=== PATIENT | male | born 1935 | race African-American/Black ===

== ENCOUNTER 2018-08-25 12:57 | Inpatient (IN) ==
[2018-08-25] MEDS ORDERED: MAGNESIUM HYDROXIDE SUSP 30 ML UDCUP PO PRN (13:26)
[2018-08-25] MEDS ORDERED: ONDANSETRON 4 MG/2 ML VIAL IV PRN (13:26)
[2018-08-25 15:24] LABS: Eosinophils % 3.6 % (0.00-10.9); Hematocrit 29.7 VOL% (42.0-52.0); Immature Granulocytes % 1.2 %; Immature Granulocytes Absolute 0.01 #; Lymphocytes # 0.3 10*3/uL (1.4-4.0); Lymphocytes % 39.8 % (21.2-54.2); Mean Corpuscular HGB Conc 30.3 GM/DL (32-36); Mean Corpuscular Volume 61.9 FL (87-102); Monocytes % 3.6 % (1.7-12.7); Neutrophils % 51.8 % (38.7-73.9); Platelet Count 331 T/CUMM (130-400); Red Cell Distribution Width 17.5 % (9.3-17.3)
[2018-08-25 15:27] LABS: White Blood Count 0.8 T/CUMM (4-12)
[2018-08-25] MEDS: FLUCONAZOLE INJ 100 MG in IV BAG 1 EACH IV SCH (15:30)
[2018-08-25] MEDS: MUPIROCIN 2% OINT 22 GM TUBE TOP SCH ×2 (15:30→21:09)
[2018-08-25] MEDS: NYSTATIN 500,000 UNIT/5 ML UDCUP SWISH/SWAL SCH ×3 (15:31→21:55)
[2018-08-25] MEDS: ENOXAPARIN 30 MG/0.3 ML SYRINGE SUBCUT SCH (15:31)
[2018-08-25] MEDS: KETOCONAZOLE 2% CREAM 30 GM TUBE TOP SCH ×2 (15:31→21:55)
[2018-08-25] MEDS: SODIUM CHLORIDE 0.9% 1,000 ML IV SCH (15:31)
[2018-08-25 15:33] LABS: Alanine Aminotransferase 10 U/L (16-61); Albumin 2.7 G/DL (3.4-5.0); Alkaline Phosphatase 46 U/L (45-117); Aspartate Amino Transferase 10 U/L (0-37); Bilirubin,Total < 0.39 MG/DL (0.2-1.0); Blood Urea Nitrogen 37 MG/DL (7-18); Calcium 8.5 MG/DL (8.5-10.1); Glucose 123 MG/DL (74-106); Osmolality,Calculated 288.4 MOS/KG (273-304); Total Protein 7.6 G/DL (6.4-8.3)
[2018-08-25] MEDS ORDERED: VANCOMYCIN INJ 1,000 MG in SODIUM CHLORIDE 0.9% 250 ML IV ONE (15:35)
[2018-08-25 16:03] LABS: Eosinophils 6 % (0-10); Hypochromasia 1+; Lymphocytes 47 % (20-55); Microcytosis 2+; Ovalocytes Few; Platelet Estimate Normal; Segmented Neutrophils 44 % (50-85); Target Cells Few; Total Cells Counted 100
[2018-08-25 16:04] LABS: Atypical Lymphocytes Few
[2018-08-25] MEDS: methylPREDNISolone SOD SUC 40 MG/1 ML VIAL IV SCH (16:34)
[2018-08-25] MEDS: CLINDAMYCIN INJ 300 MG in PREMIX 1 EACH IV SCH ×2 (16:35→23:50)
[2018-08-25 17:21] LABS: Apearance,Urine Slightly Hazy (Clear); Bilirubin,Urine Negative (Negative); Blood, Urine Negative (Negative); Glucose,Urine (UA) Negative (Negative); Ketones,Urine Negative (Negative); Mucus,Urine Occasional /LPF (Occasional); Nitrite,Urine Negative (Negative); Protein,Urine 100 MG/DL; RBC,Urine 2 /HPF (0-4); Squamous Epithelial Cell,Urine Occasional /HPF (0-10); Urine Color Yellow (Yellow); Urine Specific Gravity 1.016 (1.001-1.035); Urine Urobilinogen < 2.0 EU/DL (0.2-1.0); WBC,Urine 4 /HPF (0-6)
[2018-08-25] MEDS: diphenhydrAMINE CAP 25 MG CAPSULE PO PRN (17:44)
[2018-08-25] MEDS: FILGRASTIM-SNDZ 300 MCG/0.5 ML SYRINGE SUBCUT SCH (17:44)
[2018-08-25] MEDS: FOLIC ACID 1 MG TABLET PO SCH (18:16)
[2018-08-25] MEDS: LEUCOVORIN IV SCH (21:05)
[2018-08-25] MEDS: DEXTROSE 5% IV SCH (21:05)
[2018-08-25] MEDS: DOCUSATE SODIUM 100 MG CAPSULE PO SCH (21:09)
[2018-08-25] MEDS: MYLANTA/LIDO VISC/DIPH 300 ML BOTTLE SWISH/SWAL PRN (21:09)
[2018-08-25] MEDS: MEMANTINE 10 MG TABLET PO SCH (21:09)
[2018-08-26] MEDS: methylPREDNISolone SOD SUC 40 MG/1 ML VIAL IV SCH ×3 (00:15→17:20)
[2018-08-26] MEDS: diphenhydrAMINE CAP 25 MG CAPSULE PO PRN ×2 (00:17→20:31)
[2018-08-26] MEDS: LEUCOVORIN IV SCH ×4 (02:57→20:32)
[2018-08-26] MEDS: DEXTROSE 5% IV SCH ×4 (02:57→20:32)
[2018-08-26] MEDS: CLINDAMYCIN INJ 300 MG in PREMIX 1 EACH IV SCH ×4 (04:35→23:28)
[2018-08-26 06:00] LABS: Hematocrit 28.3 VOL% (42.0-52.0); Hemoglobin 8.6 GM/DL (14.0-18.0); Immature Granulocytes % 20.4 %; Immature Granulocytes Absolute 0.11 #; Lymphocytes # 0.2 10*3/uL (1.4-4.0); Lymphocytes % 33.3 % (21.2-54.2); Mean Corpuscular HGB Conc 30.4 GM/DL (32-36); Mean Corpuscular Volume 61.5 FL (87-102); Monocytes % 3.7 % (1.7-12.7); Neutrophils % 42.6 % (38.7-73.9); Platelet Count 331 T/CUMM (130-400); Red Cell Distribution Width 17.9 % (9.3-17.3)
[2018-08-26 06:03] LABS: White Blood Count 0.5 T/CUMM (4-12)
[2018-08-26 06:15] LABS: Calcium 7.9 MG/DL (8.5-10.1); Osmolality,Calculated 289.7 MOS/KG (273-304)
[2018-08-26 06:29] LABS: Burr Cells Slight; Hypochromasia 1+; Lymphocytes 10 % (20-55); Microcytosis 1+; Ovalocytes Slight; Platelet Estimate Adequate; Segmented Neutrophils 90 % (50-85); Total Cells Counted 100
[2018-08-26] MEDS ORDERED: FOLIC ACID 1 MG TABLET PO SCH (09:00)
[2018-08-26] MEDS: FILGRASTIM-SNDZ 300 MCG/0.5 ML SYRINGE SUBCUT SCH (09:44)
[2018-08-26] MEDS: ASPIRIN EC 81 MG TABLET PO SCH (09:44)
[2018-08-26] MEDS: MUPIROCIN 2% OINT 22 GM TUBE TOP SCH ×2 (09:44→20:31)
[2018-08-26] MEDS: NYSTATIN 500,000 UNIT/5 ML UDCUP SWISH/SWAL SCH ×4 (09:44→20:31)
[2018-08-26] MEDS: PANTOPRAZOLE 40 MG TABLET PO SCH (09:44)
[2018-08-26] MEDS: SODIUM CHLORIDE 0.9% 1,000 ML IV SCH ×3 (09:45→12:13)
[2018-08-26] MEDS: DOCUSATE SODIUM 100 MG CAPSULE PO SCH ×2 (09:45→20:31)
[2018-08-26] MEDS: FOLIC ACID 1 MG TABLET PO SCH (09:45)
[2018-08-26] MEDS: KETOCONAZOLE 2% CREAM 30 GM TUBE TOP SCH ×2 (09:49→20:31)
[2018-08-26] MEDS: ENOXAPARIN 30 MG/0.3 ML SYRINGE SUBCUT SCH (13:49)
[2018-08-26] MEDS: FLUCONAZOLE INJ 100 MG in IV BAG 1 EACH IV SCH (14:18)
[2018-08-26] MEDS: HYDROCORTISONE 2.5% RECTAL CREAM 30 GM TUBE TOP SCH ×2 (17:21→20:31)
[2018-08-26] MEDS: MEMANTINE 10 MG TABLET PO SCH (20:31)
[2018-08-27] MEDS: SODIUM CHLORIDE 0.9% 1,000 ML IV SCH ×3 (02:41→14:36)
[2018-08-27] MEDS: DEXTROSE 5% IV SCH ×2 (03:26→09:28)
[2018-08-27] MEDS: LEUCOVORIN IV SCH ×2 (03:26→09:28)
[2018-08-27] MEDS: CLINDAMYCIN INJ 300 MG in PREMIX 1 EACH IV SCH ×4 (05:12→23:06)
[2018-08-27 06:44] LABS: Hemoglobin 8.7 GM/DL (14.0-18.0); Immature Granulocytes % 4.1 %; Immature Granulocytes Absolute 0.04 #; Lymphocytes # 0.4 10*3/uL (1.4-4.0); Lymphocytes % 40.8 % (21.2-54.2); Mean Corpuscular HGB Conc 31.1 GM/DL (32-36); Mean Corpuscular Volume 60.5 FL (87-102); Monocytes % 3.1 % (1.7-12.7); Platelet Count 238 T/CUMM (130-400); Red Blood Count 4.63 MC/CUMM (3.8-5.5); Red Cell Distribution Width 17.7 % (9.3-17.3)
[2018-08-27 06:46] LABS: Calcium 8.1 MG/DL (8.5-10.1); Osmolality,Calculated 282.7 MOS/KG (273-304)
[2018-08-27 07:33] LABS: Lymphocytes 60 % (20-55); Poikilocytosis 2+; Segmented Neutrophils 40 % (50-85); Total Cells Counted 100
[2018-08-27 07:34] LABS: Hypochromasia 2+; Ovalocytes Few; Target Cells Slight
[2018-08-27 07:35] LABS: Polychromasia Slight; Schistocytes Few
[2018-08-27 07:36] LABS: Tear Drop Cells Few
[2018-08-27 07:38] LABS: Platelet Estimate Adequate
[2018-08-27] MEDS: FOLIC ACID 1 MG TABLET PO SCH (08:05)
[2018-08-27] MEDS: FILGRASTIM-SNDZ 300 MCG/0.5 ML SYRINGE SUBCUT SCH (08:05)
[2018-08-27] MEDS: ASPIRIN EC 81 MG TABLET PO SCH (08:06)
[2018-08-27] MEDS: NYSTATIN 500,000 UNIT/5 ML UDCUP SWISH/SWAL SCH ×4 (08:06→20:48)
[2018-08-27] MEDS: DOCUSATE SODIUM 100 MG CAPSULE PO SCH ×2 (08:06→21:32)
[2018-08-27] MEDS: PANTOPRAZOLE 40 MG TABLET PO SCH (08:06)
[2018-08-27] MEDS: MUPIROCIN 2% OINT 22 GM TUBE TOP SCH ×2 (08:07→20:50)
[2018-08-27] MEDS: KETOCONAZOLE 2% CREAM 30 GM TUBE TOP SCH ×2 (08:07→20:49)
[2018-08-27] MEDS: HYDROCORTISONE 2.5% RECTAL CREAM 30 GM TUBE TOP SCH ×3 (08:07→20:48)
[2018-08-27] MEDS: FLUCONAZOLE INJ 100 MG in IV BAG 1 EACH IV SCH (14:01)
[2018-08-27] MEDS: ENOXAPARIN 30 MG/0.3 ML SYRINGE SUBCUT SCH (14:01)
[2018-08-27] MEDS ORDERED: SODIUM CHLORIDE 0.9% 1,000 ML IV PRN (16:41)
[2018-08-27] MEDS: MEMANTINE 10 MG TABLET PO SCH (20:48)
[2018-08-27] MEDS: MYLANTA/LIDO VISC/DIPH 300 ML BOTTLE SWISH/SWAL PRN (20:58)
[2018-08-28 05:38] LABS: Calcium 7.8 MG/DL (8.5-10.1); Osmolality,Calculated 279.8 MOS/KG (273-304)
[2018-08-28] MEDS: CLINDAMYCIN INJ 300 MG in PREMIX 1 EACH IV SCH ×4 (06:46→22:43)
[2018-08-28 08:13] LABS: Eosinophils % 5.8 % (0.00-10.9); Hematocrit 28.2 VOL% (42.0-52.0); Hemoglobin 8.7 GM/DL (14.0-18.0); Lymphocytes # 0.3 10*3/uL (1.4-4.0); Lymphocytes % 55.8 % (21.2-54.2); Mean Corpuscular HGB Conc 30.9 GM/DL (32-36); Mean Corpuscular Volume 62.7 FL (87-102); Monocytes % 11.5 % (1.7-12.7); Neutrophils % 26.9 % (38.7-73.9); Platelet Count 155 T/CUMM (130-400); Red Cell Distribution Width 20.8 % (9.3-17.3)
[2018-08-28 08:45] LABS: White Blood Count 0.5 T/CUMM (4-12)
[2018-08-28 08:59] LABS: Anisocytosis 2+; Band Neutrophils 20 % (0-10); Lymphocytes 20 % (20-55); Platelet Estimate Normal; Poikilocytosis 2+; Segmented Neutrophils 20 % (50-85); Target Cells Few; Total Cells Counted 100
[2018-08-28 09:00] LABS: Burr Cells Few; Tear Drop Cells Few
[2018-08-28] MEDS: FOLIC ACID 1 MG TABLET PO SCH (09:01)
[2018-08-28] MEDS: FILGRASTIM-SNDZ 300 MCG/0.5 ML SYRINGE SUBCUT SCH (09:01)
[2018-08-28] MEDS: ASPIRIN EC 81 MG TABLET PO SCH (09:02)
[2018-08-28] MEDS: KETOCONAZOLE 2% CREAM 30 GM TUBE TOP SCH ×2 (09:02→22:43)
[2018-08-28] MEDS: PANTOPRAZOLE 40 MG TABLET PO SCH (09:02)
[2018-08-28] MEDS: HYDROCORTISONE 2.5% RECTAL CREAM 30 GM TUBE TOP SCH ×3 (09:02→21:35)
[2018-08-28] MEDS: MUPIROCIN 2% OINT 22 GM TUBE TOP SCH ×2 (09:02→21:35)
[2018-08-28] MEDS: NYSTATIN 500,000 UNIT/5 ML UDCUP SWISH/SWAL SCH ×4 (09:02→21:34)
[2018-08-28] MEDS: DOCUSATE SODIUM 100 MG CAPSULE PO SCH ×2 (09:02→21:35)
[2018-08-28] MEDS: SODIUM CHLORIDE 0.9% 1,000 ML IV SCH ×2 (09:04→11:18)
[2018-08-28] MEDS ORDERED: CYANOCOBALAMIN 1000 MCG/1 ML VIAL IM ONE (09:37)
[2018-08-28 10:31] LABS: Albumin 2.2 G/DL (3.4-5.0); Bilirubin,Total 0.5 MG/DL (0.2-1.0); Calcium 7.9 MG/DL (8.5-10.1); Total Protein 6.4 G/DL (6.4-8.3)
[2018-08-28] MEDS: FLUCONAZOLE INJ 100 MG in IV BAG 1 EACH IV SCH (14:09)
[2018-08-28] MEDS: ENOXAPARIN 30 MG/0.3 ML SYRINGE SUBCUT SCH (14:10)
[2018-08-28 15:15] LABS: Hematocrit 29.9 VOL% (42.0-52.0); Hemoglobin 9.3 GM/DL (14.0-18.0)
[2018-08-28] MEDS: MYLANTA/LIDO VISC/DIPH 300 ML BOTTLE SWISH/SWAL PRN (21:35)
[2018-08-28] MEDS: MEMANTINE 10 MG TABLET PO SCH (21:35)
[2018-08-29] MEDS: SODIUM CHLORIDE 0.9% 1,000 ML IV SCH ×2 (03:15→13:29)
[2018-08-29 05:05] LABS: Eosinophils % 12.1 % (0.00-10.9); Immature Granulocytes Absolute 0.01 #; Lymphocytes # 0.2 10*3/uL (1.4-4.0); Lymphocytes % 57.6 % (21.2-54.2); Mean Corpuscular HGB Conc 32.1 GM/DL (32-36); Mean Corpuscular Volume 63.9 FL (87-102); Monocytes % 15.2 % (1.7-12.7); Neutrophils % 12.1 % (38.7-73.9); Platelet Count 123 T/CUMM (130-400); Red Blood Count 4.38 MC/CUMM (3.8-5.5); Red Cell Distribution Width 23.2 % (9.3-17.3)
[2018-08-29 05:23] LABS: White Blood Count 0.3 T/CUMM (4-12)
[2018-08-29 05:28] LABS: Albumin 1.9 G/DL (3.4-5.0); Bilirubin,Total 0.8 MG/DL (0.2-1.0); Calcium 7.5 MG/DL (8.5-10.1); Total Protein 5.7 G/DL (6.4-8.3)
[2018-08-29] MEDS: CLINDAMYCIN INJ 300 MG in PREMIX 1 EACH IV SCH (05:37)
[2018-08-29 05:59] LABS: Eosinophils 10 % (0-10); Lymphocytes 60 % (20-55); Segmented Neutrophils 20 % (50-85); Total Cells Counted 100
[2018-08-29 06:00] LABS: Acanthocytes 1+; Anisocytosis 2+; Hypochromasia 1+; Ovalocytes 2+; Platelet Estimate Adequate; Target Cells Few
[2018-08-29] MEDS: PANTOPRAZOLE 40 MG TABLET PO SCH (09:02)
[2018-08-29] MEDS: DOCUSATE SODIUM 100 MG CAPSULE PO SCH ×2 (09:02→21:23)
[2018-08-29] MEDS: FOLIC ACID 1 MG TABLET PO SCH (09:02)
[2018-08-29] MEDS: ASPIRIN EC 81 MG TABLET PO SCH (09:03)
[2018-08-29] MEDS: NYSTATIN 500,000 UNIT/5 ML UDCUP SWISH/SWAL SCH ×4 (09:03→21:23)
[2018-08-29] MEDS: KETOCONAZOLE 2% CREAM 30 GM TUBE TOP SCH ×2 (09:04→21:27)
[2018-08-29] MEDS: HYDROCORTISONE 2.5% RECTAL CREAM 30 GM TUBE TOP SCH ×3 (09:04→21:27)
[2018-08-29] MEDS: MUPIROCIN 2% OINT 22 GM TUBE TOP SCH ×2 (09:05→21:27)
[2018-08-29] MEDS: FILGRASTIM-SNDZ 300 MCG/0.5 ML SYRINGE SUBCUT SCH (10:03)
[2018-08-29] MEDS: MYLANTA/LIDO VISC/DIPH 300 ML BOTTLE SWISH/SWAL PRN ×2 (11:34→15:10)
[2018-08-29] MEDS: ENOXAPARIN 30 MG/0.3 ML SYRINGE SUBCUT SCH (13:29)
[2018-08-29] MEDS: FLUCONAZOLE INJ 100 MG in IV BAG 1 EACH IV SCH (13:31)
[2018-08-29] MEDS: MEMANTINE 10 MG TABLET PO SCH (21:23)
[2018-08-30] MEDS: SODIUM CHLORIDE 0.9% 1,000 ML IV SCH ×3 (00:04→21:46)
[2018-08-30] MEDS: ACETAMINOPHEN 325 MG TABLET PO PRN (00:09)
[2018-08-30 05:50] LABS: Eosinophils # 0.1 10*3/uL (0.0-0.87); Hematocrit 28.3 VOL% (42.0-52.0); Hemoglobin 8.9 GM/DL (14.0-18.0); Immature Granulocytes Absolute 0.03 #; Lymphocytes # 0.4 10*3/uL (1.4-4.0); Lymphocytes % 58.3 % (21.2-54.2); Mean Corpuscular HGB Conc 31.4 GM/DL (32-36); Monocytes % 13.3 % (1.7-12.7); Neutrophils % 3.4 % (38.7-73.9); Platelet Count 81 T/CUMM (130-400); Red Blood Count 4.42 MC/CUMM (3.8-5.5); Red Cell Distribution Width 23.9 % (9.3-17.3)
[2018-08-30 05:54] LABS: White Blood Count 0.6 T/CUMM (4-12)
[2018-08-30 06:27] LABS: Albumin 1.8 G/DL (3.4-5.0); Bilirubin,Total 0.5 MG/DL (0.2-1.0); Calcium 7.6 MG/DL (8.5-10.1); Osmolality,Calculated 281.4 MOS/KG (273-304); Total Protein 5.9 G/DL (6.4-8.3)
[2018-08-30 07:07] LABS: Burr Cells Slight; Elliptocytes Few; Eosinophils 10 % (0-10); Hypochromasia 1+; Lymphocytes 40 % (20-55); Platelet Estimate Decreased; Segmented Neutrophils 20 % (50-85); Total Cells Counted 100
[2018-08-30] MEDS: FOLIC ACID 1 MG TABLET PO SCH (09:46)
[2018-08-30] MEDS: DOCUSATE SODIUM 100 MG CAPSULE PO SCH ×2 (09:47→20:06)
[2018-08-30] MEDS: ASPIRIN EC 81 MG TABLET PO SCH (09:47)
[2018-08-30] MEDS: PANTOPRAZOLE 40 MG TABLET PO SCH (09:47)
[2018-08-30] MEDS: MUPIROCIN 2% OINT 22 GM TUBE TOP SCH ×2 (09:49→20:10)
[2018-08-30] MEDS: FILGRASTIM-SNDZ 300 MCG/0.5 ML SYRINGE SUBCUT SCH (09:49)
[2018-08-30] MEDS: KETOCONAZOLE 2% CREAM 30 GM TUBE TOP SCH ×2 (09:49→20:07)
[2018-08-30] MEDS: HYDROCORTISONE 2.5% RECTAL CREAM 30 GM TUBE TOP SCH ×3 (09:52→20:10)
[2018-08-30] MEDS: NYSTATIN 500,000 UNIT/5 ML UDCUP SWISH/SWAL SCH ×2 (09:52→13:12)
[2018-08-30] MEDS: ENOXAPARIN 30 MG/0.3 ML SYRINGE SUBCUT SCH (13:12)
[2018-08-30] MEDS: POTASSIUM CHLORIDE 20 MEQ/15 ML UDCUP PER TUBE PRN (16:23)
[2018-08-30] MEDS: CLOTRIMAZOLE 10 MG TROCHE PO SCH ×2 (16:25→20:06)
[2018-08-30] MEDS: traMADol 50 MG TABLET PO PRN (20:06)
[2018-08-30] MEDS: MEMANTINE 10 MG TABLET PO SCH (20:06)
[2018-08-30] MEDS: ALBUMIN 25% 25 GM in PREMIX 1 EACH IV SCH (23:01)
[2018-08-31] MEDS: traMADol 50 MG TABLET PO PRN ×2 (03:58→10:30)
[2018-08-31] MEDS: ALBUMIN 25% 25 GM in PREMIX 1 EACH IV SCH ×3 (05:55→22:22)
[2018-08-31 06:09] LABS: Eosinophils # 0.2 10*3/uL (0.0-0.87); Eosinophils % 17.1 % (0.00-10.9); Hematocrit 24.6 VOL% (42.0-52.0); Hemoglobin 8.1 GM/DL (14.0-18.0); Lymphocytes # 0.5 10*3/uL (1.4-4.0); Lymphocytes % 39.8 % (21.2-54.2); Mean Corpuscular HGB Conc 32.9 GM/DL (32-36); Mean Corpuscular Volume 62.8 FL (87-102); Monocytes % 17.9 % (1.7-12.7); NRBC # 0.02 10*3/uL; Neutrophils % 25.2 % (38.7-73.9); Red Blood Count 3.92 MC/CUMM (3.8-5.5); Red Cell Distribution Width 23.9 % (9.3-17.3); White Blood Count 1.2 T/CUMM (4-12)
[2018-08-31 06:14] LABS: Platelet Count 30 T/CUMM (130-400)
[2018-08-31 06:19] LABS: Albumin 1.9 G/DL (3.4-5.0); Bilirubin,Total 0.7 MG/DL (0.2-1.0); Calcium 7.6 MG/DL (8.5-10.1); Osmolality,Calculated 274.8 MOS/KG (273-304); Total Protein 5.6 G/DL (6.4-8.3)
[2018-08-31 07:46] LABS: Eosinophils 25 % (0-10); Lymphocytes 55 % (20-55); Nucleated Red Blood Cells 1 (0-5); Platelet Estimate Decreased; Segmented Neutrophils 5 % (50-85); Total Cells Counted 100
[2018-08-31 07:47] LABS: Hypochromasia Slight; Ovalocytes Slight
[2018-08-31] MEDS: PANTOPRAZOLE 40 MG TABLET PO SCH (09:20)
[2018-08-31] MEDS: DOCUSATE SODIUM 100 MG CAPSULE PO SCH ×2 (09:20→22:25)
[2018-08-31] MEDS: MUPIROCIN 2% OINT 22 GM TUBE TOP SCH ×2 (09:20→22:24)
[2018-08-31] MEDS: KETOCONAZOLE 2% CREAM 30 GM TUBE TOP SCH ×2 (09:20→22:24)
[2018-08-31] MEDS: ASPIRIN EC 81 MG TABLET PO SCH (09:20)
[2018-08-31] MEDS: FOLIC ACID 1 MG TABLET PO SCH (09:20)
[2018-08-31] MEDS: CLOTRIMAZOLE 10 MG TROCHE PO SCH ×4 (09:20→22:25)
[2018-08-31] MEDS: HYDROCORTISONE 2.5% RECTAL CREAM 30 GM TUBE TOP SCH ×3 (09:20→22:25)
[2018-08-31] MEDS: FILGRASTIM-SNDZ 300 MCG/0.5 ML SYRINGE SUBCUT SCH (09:30)
[2018-08-31] MEDS: SODIUM CHLORIDE 0.9% 1,000 ML IV SCH (12:50)
[2018-08-31] MEDS: MYLANTA/LIDO VISC/DIPH 300 ML BOTTLE SWISH/SWAL PRN ×3 (13:00→22:24)
[2018-08-31] MEDS ORDERED: cloNIDine 0.1 MG TABLET PO ONE (15:18)
[2018-08-31] MEDS ORDERED: cloNIDine 0.1 MG TABLET PO PRN (15:19)
[2018-08-31] MEDS ORDERED: SODIUM CHLORIDE 0.9% 1,000 ML IV PRN ×2 (17:27→18:39)
[2018-08-31] MEDS: MEMANTINE 10 MG TABLET PO SCH (22:25)
[2018-08-31] MEDS: diphenhydrAMINE CAP 25 MG CAPSULE PO PRN (23:48)
[2018-08-31] MEDS: ACETAMINOPHEN 325 MG TABLET PO PRN (23:48)
[2018-09-01 06:47] LABS: Albumin 2.7 G/DL (3.4-5.0); Bilirubin,Total 0.6 MG/DL (0.2-1.0); Calcium 8.1 MG/DL (8.5-10.1); Osmolality,Calculated 276.7 MOS/KG (273-304)
[2018-09-01] MEDS: ALBUMIN 25% 25 GM in PREMIX 1 EACH IV SCH ×3 (07:08→21:02)
[2018-09-01] MEDS: SODIUM CHLORIDE 0.9% 1,000 ML IV SCH ×3 (08:22→22:07)
[2018-09-01 08:30] LABS: Basophils % 0.4 % (0.0-0.8); Eosinophils # 0.3 10*3/uL (0.0-0.87); Eosinophils % 4.5 % (0.00-10.9); Hematocrit 32.3 VOL% (42.0-52.0); Immature Granulocytes % 14.8 %; Immature Granulocytes Absolute 1.11 #; Lymphocytes # 1.5 10*3/uL (1.4-4.0); Lymphocytes % 19.7 % (21.2-54.2); Mean Corpuscular HGB Conc 31.9 GM/DL (32-36); Monocytes % 6.5 % (1.7-12.7); NRBC # 0.11 10*3/uL; Neutrophils % 54.1 % (38.7-73.9); Platelet Count 48 T/CUMM (130-400); Red Blood Count 4.75 MC/CUMM (3.8-5.5); Red Cell Distribution Width 28.8 % (9.3-17.3); White Blood Count 7.5 T/CUMM (4-12)
[2018-09-01 08:33] LABS: Hemoglobin 10.3 GM/DL (14.0-18.0)
[2018-09-01 09:09] LABS: Band Neutrophils 7 % (0-10); Eosinophils 5 % (0-10); Lymphocytes 30 % (20-55); Nucleated Red Blood Cells 1 (0-5); Platelet Estimate Decreased; Segmented Neutrophils 44 % (50-85); Total Cells Counted 100
[2018-09-01 09:10] LABS: Hypochromasia 1+; Ovalocytes Slight
[2018-09-01 09:13] LABS: Target Cells Few
[2018-09-01] MEDS: FILGRASTIM-SNDZ 300 MCG/0.5 ML SYRINGE SUBCUT SCH (09:47)
[2018-09-01] MEDS: CLOTRIMAZOLE 10 MG TROCHE PO SCH ×4 (09:47→21:01)
[2018-09-01] MEDS: DOCUSATE SODIUM 100 MG CAPSULE PO SCH ×2 (09:47→21:01)
[2018-09-01] MEDS: FOLIC ACID 1 MG TABLET PO SCH (09:47)
[2018-09-01] MEDS: HYDROCORTISONE 2.5% RECTAL CREAM 30 GM TUBE TOP SCH ×3 (09:48→21:03)
[2018-09-01] MEDS: MUPIROCIN 2% OINT 22 GM TUBE TOP SCH ×2 (09:48→21:00)
[2018-09-01] MEDS: KETOCONAZOLE 2% CREAM 30 GM TUBE TOP SCH ×2 (09:48→21:00)
[2018-09-01] MEDS: diphenhydrAMINE CAP 25 MG CAPSULE PO PRN ×2 (12:26→18:42)
[2018-09-01] MEDS: FAT EMULSION 20% 250 ML IV SCH (15:29)
[2018-09-01] MEDS ORDERED: METOPROLOL TARTRATE 25 MG TABLET PO ONE (16:41)
[2018-09-01] MEDS: TRACE ELEMENTS (5) 1 ML, MULTIVITAMIN INJ 10 ML in AMINO ACIDS/DEXT/LYTES 4.25-5% 2,000 ML IV SCH (17:57)
[2018-09-01] MEDS ORDERED: FUROSEMIDE 40 MG/4 ML VIAL IV ONE (20:12)
[2018-09-01] MEDS ORDERED: MORPHINE 4 MG/1 ML VIAL IV ONE (20:12)
[2018-09-01] MEDS ORDERED: METOPROLOL TARTRATE 25 MG TABLET PO SCH (21:00)
[2018-09-01] MEDS: MEMANTINE 10 MG TABLET PO SCH (21:01)
[2018-09-01] MEDS: POTASSIUM CHLORIDE 20 MEQ/15 ML UDCUP PER TUBE PRN (21:01)
[2018-09-01] MEDS: PHENOL 1.4% THROAT SPRAY 177 ML BOTTLE PO PRN (21:33)
[2018-09-01] MEDS: cloNIDine 0.1 MG TABLET PO SCH ×2 (22:06→23:59)
[2018-09-02 05:57] LABS: Basophils % 0.2 % (0.0-0.8); Eosinophils # 0.4 10*3/uL (0.0-0.87); Eosinophils % 2.1 % (0.00-10.9); Hematocrit 31.6 VOL% (42.0-52.0); Hemoglobin 10.3 GM/DL (14.0-18.0); Immature Granulocytes % 20.1 %; Immature Granulocytes Absolute 4.13 #; Lymphocytes # 1.8 10*3/uL (1.4-4.0); Lymphocytes % 8.8 % (21.2-54.2); Mean Corpuscular HGB Conc 32.6 GM/DL (32-36); Mean Corpuscular Volume 66.8 FL (87-102); Monocytes % 3.4 % (1.7-12.7); Neutrophils % 65.4 % (38.7-73.9); Platelet Count 69 T/CUMM (130-400); Red Blood Count 4.73 MC/CUMM (3.8-5.5); Red Cell Distribution Width 28.3 % (9.3-17.3); White Blood Count 20.6 T/CUMM (4-12)
[2018-09-02 06:14] LABS: Albumin 3.2 G/DL (3.4-5.0); Albumin 3.5 G/DL (3.4-5.0); Bilirubin,Direct 0.18 MG/DL (0.0-0.20); Bilirubin,Indirect 0.5 MG/DL (0.0-1.0); Bilirubin,Total 0.7 MG/DL (0.2-1.0); Bilirubin,Total 0.9 MG/DL (0.2-1.0); Calcium 8.8 MG/DL (8.5-10.1); Osmolality,Calculated 275.8 MOS/KG (273-304); Total Protein 6.5 G/DL (6.4-8.3); Total Protein 6.7 G/DL (6.4-8.3)
[2018-09-02 06:16] LABS: Calcium 8.9 MG/DL (8.5-10.1); Osmolality,Calculated 276.8 MOS/KG (273-304); Prealbumin 7.5 MG/DL (20-40)
[2018-09-02 06:34] LABS: Band Neutrophils 14 % (0-10); Elliptocytes Few; Eosinophils 4 % (0-10); Hypochromasia 1+; Lymphocytes 9 % (20-55); Myelocytes 1 %; Nucleated Red Blood Cells 3 (0-5); Platelet Estimate Decreased; Segmented Neutrophils 68 % (50-85); Target Cells Few; Total Cells Counted 100
[2018-09-02] MEDS: ALBUMIN 25% 25 GM in PREMIX 1 EACH IV SCH ×2 (06:35→14:17)
[2018-09-02] MEDS: FOLIC ACID 1 MG TABLET PO SCH (09:31)
[2018-09-02] MEDS: DOCUSATE SODIUM 100 MG CAPSULE PO SCH ×2 (09:32→20:47)
[2018-09-02] MEDS: POTASSIUM CHLORIDE 20 MEQ/15 ML UDCUP PER TUBE PRN ×3 (09:32→14:18)
[2018-09-02] MEDS: CLOTRIMAZOLE 10 MG TROCHE PO SCH ×4 (09:32→20:47)
[2018-09-02] MEDS: FUROSEMIDE 20 MG/2 ML VIAL IV SCH (09:32)
[2018-09-02] MEDS: HYDROCORTISONE 2.5% RECTAL CREAM 30 GM TUBE TOP SCH ×3 (09:33→20:48)
[2018-09-02] MEDS: MUPIROCIN 2% OINT 22 GM TUBE TOP SCH ×2 (09:34→20:48)
[2018-09-02] MEDS: KETOCONAZOLE 2% CREAM 30 GM TUBE TOP SCH ×2 (09:35→20:52)
[2018-09-02] MEDS: methylPREDNISolone SOD SUC 40 MG/1 ML VIAL IV SCH (12:15)
[2018-09-02 12:54] LABS: Troponin I 0.066 NG/ML (0.00-0.045)
[2018-09-02] MEDS: cloNIDine 0.1 MG TABLET PO SCH ×2 (14:18→20:48)
[2018-09-02 14:34] LABS: Troponin I 0.052 NG/ML (0.00-0.045)
[2018-09-02] MEDS: amLODIPine 5 MG TABLET PO SCH (14:39)
[2018-09-02] MEDS ORDERED: POTASSIUM PHOSPHATE 30 MMOL in SODIUM CHLORIDE 0.9% 250 ML IV ONE (16:00)
[2018-09-02] MEDS: IPRATROPIUM 500 MCG/2.5 ML NEB RESP TX SCH ×2 (16:21→19:31)
[2018-09-02] MEDS: FAT EMULSION 20% 250 ML IV SCH (17:01)
[2018-09-02] MEDS: TRACE ELEMENTS (5) 1 ML, MULTIVITAMIN INJ 10 ML in AMINO ACIDS/DEXT/LYTES 4.25-5% 2,000 ML IV SCH (17:09)
[2018-09-02] MEDS: BUDESONIDE 0.25 MG/2 ML NEB RESP TX SCH (19:31)
[2018-09-02] MEDS: MEMANTINE 10 MG TABLET PO SCH (20:47)
[2018-09-03] MEDS: methylPREDNISolone SOD SUC 40 MG/1 ML VIAL IV SCH ×2 (01:45→15:34)
[2018-09-03] MEDS: PHENOL 1.4% THROAT SPRAY 177 ML BOTTLE PO PRN (01:47)
[2018-09-03 05:50] LABS: Basophils # 0.2 10*3/uL (0.0-0.2); Basophils % 0.8 % (0.0-0.8); Eosinophils # 0.2 10*3/uL (0.0-0.87); Eosinophils % 0.6 % (0.00-10.9); Hematocrit 30.8 VOL% (42.0-52.0); Hemoglobin 10.2 GM/DL (14.0-18.0); Immature Granulocytes % 20.5 %; Immature Granulocytes Absolute 5.12 #; Lymphocytes # 1.6 10*3/uL (1.4-4.0); Lymphocytes % 6.5 % (21.2-54.2); Mean Corpuscular HGB Conc 33.1 GM/DL (32-36); Mean Corpuscular Volume 66.7 FL (87-102); Monocytes % 3.4 % (1.7-12.7); Neutrophils % 68.2 % (38.7-73.9); Red Blood Count 4.62 MC/CUMM (3.8-5.5); Red Cell Distribution Width 29.5 % (9.3-17.3)
[2018-09-03 05:53] LABS: Platelet Count 86 T/CUMM (130-400)
[2018-09-03 06:02] LABS: Albumin 3.4 G/DL (3.4-5.0); Bilirubin,Total 0.5 MG/DL (0.2-1.0); Calcium 8.4 MG/DL (8.5-10.1); Osmolality,Calculated 284.4 MOS/KG (273-304); Total Protein 6.6 G/DL (6.4-8.3)
[2018-09-03 06:16] LABS: Band Neutrophils 7 % (0-10); Lymphocytes 12 % (20-55); Platelet Estimate Decreased; Segmented Neutrophils 80 % (50-85); Total Cells Counted 100
[2018-09-03 06:17] LABS: Elliptocytes Few; Hypochromasia 1+; Polychromasia Few; Target Cells Few
[2018-09-03] MEDS: IPRATROPIUM 500 MCG/2.5 ML NEB RESP TX SCH ×4 (07:17→19:39)
[2018-09-03] MEDS: BUDESONIDE 0.25 MG/2 ML NEB RESP TX SCH ×2 (07:17→19:39)
[2018-09-03] MEDS ORDERED: PROPOFOL 200 MG/20 ML VIAL IV ONE (09:00)
[2018-09-03] MEDS: HYDROCORTISONE 2.5% RECTAL CREAM 30 GM TUBE TOP SCH ×3 (09:00→21:39)
[2018-09-03] MEDS ORDERED: LIDOCAINE 2% 5 ML VIAL ONE (09:00)
[2018-09-03] MEDS: MUPIROCIN 2% OINT 22 GM TUBE TOP SCH ×2 (09:00→21:39)
[2018-09-03] MEDS ORDERED: PHENYLEPH/MINERAL OIL/PETROLAT 57 GM TUBE TOP PRN (13:48)
[2018-09-03] MEDS: FUROSEMIDE 20 MG/2 ML VIAL IV SCH (14:03)
[2018-09-03] MEDS: LACTATED RINGERS 500 ML IV SCH (14:04)
[2018-09-03] MEDS: DOCUSATE SODIUM 100 MG CAPSULE PO SCH ×2 (14:04→21:38)
[2018-09-03] MEDS: amLODIPine 5 MG TABLET PO SCH (14:04)
[2018-09-03] MEDS: cloNIDine 0.1 MG TABLET PO SCH ×3 (14:04→21:37)
[2018-09-03] MEDS: FOLIC ACID 1 MG TABLET PO SCH (14:04)
[2018-09-03] MEDS: ISOSORBIDE MONONITRATE 30 MG TABLET PO SCH (14:04)
[2018-09-03] MEDS: KETOCONAZOLE 2% CREAM 30 GM TUBE TOP SCH ×2 (14:05→21:39)
[2018-09-03] MEDS: CLOTRIMAZOLE 10 MG TROCHE PO SCH ×4 (14:05→21:37)
[2018-09-03] MEDS ORDERED: methylPREDNISolone SOD SUC 40 MG/1 ML VIAL IV SCH (15:30)
[2018-09-03] MEDS: FAT EMULSION 20% 250 ML IV SCH (15:35)
[2018-09-03] MEDS: TRACE ELEMENTS (5) 1 ML, MULTIVITAMIN INJ 10 ML in AMINO ACIDS/DEXT/LYTES 4.25-5% 2,000 ML IV SCH (17:06)
[2018-09-03] MEDS: MYLANTA/LIDO VISC/DIPH 300 ML BOTTLE SWISH/SWAL PRN (21:37)
[2018-09-03] MEDS: MEMANTINE 10 MG TABLET PO SCH (21:38)
[2018-09-04 06:16] LABS: Basophils # 0.1 10*3/uL (0.0-0.2); Basophils % 0.3 % (0.0-0.8); Eosinophils # 0.1 10*3/uL (0.0-0.87); Eosinophils % 0.6 % (0.00-10.9); Hematocrit 30.9 VOL% (42.0-52.0); Hemoglobin 9.8 GM/DL (14.0-18.0); Immature Granulocytes % 19.1 %; Immature Granulocytes Absolute 3.33 #; Lymphocytes # 1.8 10*3/uL (1.4-4.0); Lymphocytes % 10.3 % (21.2-54.2); Mean Corpuscular HGB Conc 31.7 GM/DL (32-36); Mean Corpuscular Volume 68.1 FL (87-102); Monocytes % 6.7 % (1.7-12.7); NRBC # 0.12 10*3/uL; Platelet Count 115 T/CUMM (130-400); Red Blood Count 4.54 MC/CUMM (3.8-5.5); Red Cell Distribution Width 29.6 % (9.3-17.3); White Blood Count 17.4 T/CUMM (4-12)
[2018-09-04 06:48] LABS: Eosinophils 1 % (0-10); Lymphocytes 25 % (20-55); Myelocytes 1 %; Segmented Neutrophils 65 % (50-85); Total Cells Counted 100
[2018-09-04 06:49] LABS: Hypochromasia 1+; Microcytosis 1+; Platelet Estimate Decreased; Polychromasia Few
[2018-09-04] MEDS: BUDESONIDE 0.25 MG/2 ML NEB RESP TX SCH ×2 (07:13→19:24)
[2018-09-04] MEDS: IPRATROPIUM 500 MCG/2.5 ML NEB RESP TX SCH ×4 (07:17→19:24)
[2018-09-04] MEDS: LACTATED RINGERS 500 ML IV SCH (09:04)
[2018-09-04] MEDS: HYDROCORTISONE 2.5% RECTAL CREAM 30 GM TUBE TOP SCH ×3 (09:05→20:57)
[2018-09-04] MEDS: CLOTRIMAZOLE 10 MG TROCHE PO SCH ×4 (09:05→20:56)
[2018-09-04] MEDS: DOCUSATE SODIUM 100 MG CAPSULE PO SCH ×3 (09:05→20:56)
[2018-09-04] MEDS: FUROSEMIDE 20 MG/2 ML VIAL IV SCH (09:05)
[2018-09-04] MEDS: FOLIC ACID 1 MG TABLET PO SCH (09:05)
[2018-09-04] MEDS: cloNIDine 0.1 MG TABLET PO SCH ×3 (09:05→20:56)
[2018-09-04] MEDS: ISOSORBIDE MONONITRATE 30 MG TABLET PO SCH (09:05)
[2018-09-04] MEDS: MUPIROCIN 2% OINT 22 GM TUBE TOP SCH ×2 (09:06→20:57)
[2018-09-04] MEDS: KETOCONAZOLE 2% CREAM 30 GM TUBE TOP SCH ×2 (09:06→20:57)
[2018-09-04] MEDS: amLODIPine 5 MG TABLET PO SCH (09:06)
[2018-09-04] MEDS: FAT EMULSION 20% 250 ML IV SCH (15:08)
[2018-09-04] MEDS: TRACE ELEMENTS (5) 1 ML, MULTIVITAMIN INJ 10 ML in AMINO ACIDS/DEXT/LYTES 4.25-5% 2,000 ML IV SCH (15:10)
[2018-09-04] MEDS: MEMANTINE 10 MG TABLET PO SCH (20:56)
[2018-09-05 05:55] LABS: Basophils # 0.1 10*3/uL (0.0-0.2); Basophils % 0.7 % (0.0-0.8); Eosinophils # 0.1 10*3/uL (0.0-0.87); Eosinophils % 0.7 % (0.00-10.9); Hematocrit 29.7 VOL% (42.0-52.0); Hemoglobin 9.5 GM/DL (14.0-18.0); Immature Granulocytes % 19.9 %; Immature Granulocytes Absolute 3.27 #; Lymphocytes # 1.8 10*3/uL (1.4-4.0); Lymphocytes % 10.8 % (21.2-54.2); Mean Corpuscular Volume 67.7 FL (87-102); Monocytes % 6.5 % (1.7-12.7); NRBC # 0.05 10*3/uL; Neutrophils % 61.4 % (38.7-73.9); Platelet Count 147 T/CUMM (130-400); Red Blood Count 4.39 MC/CUMM (3.8-5.5); Red Cell Distribution Width 29.7 % (9.3-17.3); White Blood Count 16.5 T/CUMM (4-12)
[2018-09-05 06:20] LABS: Band Neutrophils 1 % (0-10); Eosinophils 1 % (0-10); Hypochromasia 2+; Lymphocytes 14 % (20-55); Metamyelocytes 2 %; Myelocytes 1 %; Nucleated Red Blood Cells 1 (0-5); Segmented Neutrophils 70 % (50-85); Total Cells Counted 100
[2018-09-05 06:21] LABS: Elliptocytes Few; Microcytosis 1+; Platelet Estimate Adequate; Target Cells Slight
[2018-09-05 06:22] LABS: Anisocytosis 1+
[2018-09-05] MEDS: IPRATROPIUM 500 MCG/2.5 ML NEB RESP TX SCH ×4 (07:27→19:18)
[2018-09-05] MEDS: BUDESONIDE 0.25 MG/2 ML NEB RESP TX SCH ×2 (07:27→19:18)
[2018-09-05] MEDS: KETOCONAZOLE 2% CREAM 30 GM TUBE TOP SCH ×2 (10:06→21:03)
[2018-09-05] MEDS: cloNIDine 0.1 MG TABLET PO SCH ×3 (10:07→21:00)
[2018-09-05] MEDS: DOCUSATE SODIUM 100 MG CAPSULE PO SCH ×2 (10:07→21:01)
[2018-09-05] MEDS: ISOSORBIDE MONONITRATE 30 MG TABLET PO SCH (10:07)
[2018-09-05] MEDS: amLODIPine 5 MG TABLET PO SCH (10:07)
[2018-09-05] MEDS: MUPIROCIN 2% OINT 22 GM TUBE TOP SCH ×2 (10:08→21:03)
[2018-09-05] MEDS: HYDROCORTISONE 2.5% RECTAL CREAM 30 GM TUBE TOP SCH ×3 (10:08→21:03)
[2018-09-05] MEDS: FOLIC ACID 1 MG TABLET PO SCH (10:08)
[2018-09-05] MEDS: CLOTRIMAZOLE 10 MG TROCHE PO SCH ×5 (10:08→21:00)
[2018-09-05] MEDS: FUROSEMIDE 20 MG/2 ML VIAL IV SCH (10:08)
[2018-09-05] MEDS: LACTATED RINGERS 500 ML IV SCH (10:09)
[2018-09-05] MEDS ORDERED: BISACODYL 5 MG TABLET PO ONE (12:00)
[2018-09-05] MEDS: TRACE ELEMENTS (5) 1 ML, MULTIVITAMIN INJ 10 ML in AMINO ACIDS/DEXT/LYTES 4.25-5% 2,000 ML IV SCH ×2 (14:31→15:59)
[2018-09-05] MEDS: FAT EMULSION 20% 250 ML IV SCH (14:31)
[2018-09-05] MEDS ORDERED: POLYETHYLENE GLYCOL POWDER 255 GM BOTTLE PO ONE (18:00)
[2018-09-05] MEDS: MEMANTINE 10 MG TABLET PO SCH (21:00)
[2018-09-06 06:21] LABS: Basophils # 0.1 10*3/uL (0.0-0.2); Basophils % 0.7 % (0.0-0.8); Eosinophils # 0.1 10*3/uL (0.0-0.87); Eosinophils % 0.9 % (0.00-10.9); Hematocrit 29.4 VOL% (42.0-52.0); Hemoglobin 9.5 GM/DL (14.0-18.0); Immature Granulocytes Absolute 2.66 #; Lymphocytes # 1.4 10*3/uL (1.4-4.0); Lymphocytes % 9.7 % (21.2-54.2); Mean Corpuscular HGB Conc 32.3 GM/DL (32-36); Mean Corpuscular Volume 67.9 FL (87-102); Monocytes % 7.9 % (1.7-12.7); NRBC # 0.03 10*3/uL; Neutrophils % 62.8 % (38.7-73.9); Platelet Count 184 T/CUMM (130-400); Red Blood Count 4.33 MC/CUMM (3.8-5.5); Red Cell Distribution Width 30.1 % (9.3-17.3); White Blood Count 14.7 T/CUMM (4-12)
[2018-09-06 06:29] LABS: Calcium 8.2 MG/DL (8.5-10.1); Osmolality,Calculated 282.1 MOS/KG (273-304)
[2018-09-06 06:50] LABS: Anisocytosis 2+; Band Neutrophils 8 % (0-10); Eosinophils 1 % (0-10); Hypochromasia 2+; Lymphocytes 12 % (20-55); Metamyelocytes 2 %; Nucleated Red Blood Cells 1 (0-5); Platelet Estimate Normal; Segmented Neutrophils 67 % (50-85); Total Cells Counted 100
[2018-09-06 06:51] LABS: Microcytosis 2+; Ovalocytes 1+; Target Cells 1+
[2018-09-06] MEDS: BUDESONIDE 0.25 MG/2 ML NEB RESP TX SCH ×2 (07:33→18:45)
[2018-09-06] MEDS: IPRATROPIUM 500 MCG/2.5 ML NEB RESP TX SCH ×4 (07:34→18:45)
[2018-09-06] MEDS ORDERED: LIDOCAINE 2% 5 ML VIAL ONE (09:00)
[2018-09-06] MEDS ORDERED: PROPOFOL 200 MG/20 ML VIAL IV ONE (09:00)
[2018-09-06] MEDS: KETOCONAZOLE 2% CREAM 30 GM TUBE TOP SCH ×2 (09:36→21:47)
[2018-09-06] MEDS: HYDROCORTISONE 2.5% RECTAL CREAM 30 GM TUBE TOP SCH ×3 (09:36→21:48)
[2018-09-06] MEDS: MUPIROCIN 2% OINT 22 GM TUBE TOP SCH ×2 (09:36→21:48)
[2018-09-06] MEDS: cloNIDine 0.1 MG TABLET PO SCH ×3 (15:22→21:47)
[2018-09-06] MEDS: CLOTRIMAZOLE 10 MG TROCHE PO SCH ×3 (15:23→21:46)
[2018-09-06] MEDS: amLODIPine 5 MG TABLET PO SCH (15:41)
[2018-09-06] MEDS: FOLIC ACID 1 MG TABLET PO SCH (15:44)
[2018-09-06] MEDS: FUROSEMIDE 20 MG/2 ML VIAL IV SCH (15:45)
[2018-09-06] MEDS: ISOSORBIDE MONONITRATE 30 MG TABLET PO SCH (15:45)
[2018-09-06] MEDS: FAT EMULSION 20% 250 ML IV SCH (15:46)
[2018-09-06] MEDS: LACTATED RINGERS 500 ML IV SCH (15:46)
[2018-09-06] MEDS: DOCUSATE SODIUM 100 MG CAPSULE PO SCH ×2 (15:46→21:46)
[2018-09-06] MEDS: TRACE ELEMENTS (5) 1 ML, MULTIVITAMIN INJ 10 ML in AMINO ACIDS/DEXT/LYTES 4.25-5% 2,000 ML IV SCH (17:51)
[2018-09-06] MEDS: TAMSULOSIN 0.4 MG CAPSULE PO SCH (21:46)
[2018-09-06] MEDS: MEMANTINE 10 MG TABLET PO SCH (21:46)
[2018-09-06] MEDS: ACETAMINOPHEN 325 MG TABLET PO PRN (21:46)
[2018-09-07 04:24] LABS: Basophils # 0.1 10*3/uL (0.0-0.2); Basophils % 0.7 % (0.0-0.8); Eosinophils # 0.2 10*3/uL (0.0-0.87); Eosinophils % 1.2 % (0.00-10.9); Hematocrit 28.8 VOL% (42.0-52.0); Hemoglobin 9.2 GM/DL (14.0-18.0); Immature Granulocytes % 12.6 %; Immature Granulocytes Absolute 1.55 #; Lymphocytes # 1.4 10*3/uL (1.4-4.0); Lymphocytes % 11.2 % (21.2-54.2); Mean Corpuscular HGB Conc 31.9 GM/DL (32-36); Mean Corpuscular Volume 68.4 FL (87-102); Monocytes % 9.5 % (1.7-12.7); NRBC # 0.03 10*3/uL; Neutrophils % 64.8 % (38.7-73.9); Platelet Count 217 T/CUMM (130-400); Red Blood Count 4.21 MC/CUMM (3.8-5.5); Red Cell Distribution Width 30.2 % (9.3-17.3); White Blood Count 12.4 T/CUMM (4-12)
[2018-09-07 04:49] LABS: Calcium 8.1 MG/DL (8.5-10.1); Osmolality,Calculated 292.4 MOS/KG (273-304)
[2018-09-07 05:04] LABS: Eosinophils 2 % (0-10); Lymphocytes 14 % (20-55); Segmented Neutrophils 78 % (50-85); Total Cells Counted 100
[2018-09-07 05:05] LABS: Hypochromasia 1+; Microcytosis 1+; Platelet Estimate Adequate; Polychromasia Few
[2018-09-07] MEDS: IPRATROPIUM 500 MCG/2.5 ML NEB RESP TX SCH ×3 (08:20→15:05)
[2018-09-07] MEDS: BUDESONIDE 0.25 MG/2 ML NEB RESP TX SCH (08:20)
[2018-09-07] MEDS: HYDROCORTISONE 2.5% RECTAL CREAM 30 GM TUBE TOP SCH ×2 (08:50→13:59)
[2018-09-07] MEDS: MUPIROCIN 2% OINT 22 GM TUBE TOP SCH (08:50)
[2018-09-07] MEDS: FOLIC ACID 1 MG TABLET PO SCH (08:50)
[2018-09-07] MEDS: DOCUSATE SODIUM 100 MG CAPSULE PO SCH (08:50)
[2018-09-07] MEDS: ISOSORBIDE MONONITRATE 30 MG TABLET PO SCH (08:50)
[2018-09-07] MEDS: CLOTRIMAZOLE 10 MG TROCHE PO SCH ×3 (08:50→16:30)
[2018-09-07] MEDS: TAMSULOSIN 0.4 MG CAPSULE PO SCH (08:50)
[2018-09-07] MEDS: cloNIDine 0.1 MG TABLET PO SCH ×2 (08:51→14:00)
[2018-09-07] MEDS: FUROSEMIDE 20 MG/2 ML VIAL IV SCH (08:51)
[2018-09-07] MEDS: amLODIPine 5 MG TABLET PO SCH (08:51)
[2018-09-07] MEDS: KETOCONAZOLE 2% CREAM 30 GM TUBE TOP SCH (08:51)
[2018-09-07] MEDS: LACTATED RINGERS 500 ML IV SCH (09:09)
[2018-09-07 16:43] VITALS: BP 120/58
== END 2018-09-07 19:57 | disposition home health service (06) | DRG 917 ==
LOC: N.5E → OBSVTOIN 14:23
PROVIDERS: ADMIT Internal Medicine; ATTEND Internal Medicine
PROC: COLONBX (2018-09-06 11:20)